=== PATIENT | male | born 1965 | race Asian ===

== ENCOUNTER 2024-05-25 06:13 | Inpatient (IN) ==
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
[2024-05-25] MEDS: AMOXICILLIN/CLAVULANATE 875 MG TAB PO ONE (10:45)
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
[2024-05-25] MEDS: SODIUM CHLORIDE 0.9% 1,000 ML IV ONE (11:20)
[2024-05-25 11:25] LABS: Basophils # (auto) 0.01 K/uL (0.00-0.20); Basophils % (auto) 0.1 %; Eosinophils # (auto) 0.02 K/uL (0.00-0.50); Eosinophils % (auto) 0.3 %; Hematocrit (blood only) 46.4 % (42.0-52.0); Hemoglobin 16.1 g/dl (14.0-18.0); Immature Granulocytes # (auto) 0.02 K/uL (0.01-0.20); Immature Granulocytes % (auto) 0.3 %; Lymphocytes % (auto) 13.4 %; Mean Corpuscular Hgb Conc 34.7 g/dL (32.0-36.0); Mean Corpuscular Volume 89.2 fL (80.0-100.0); Mean Platelet Volume 9.2 fL (9.4-12.4); Monocytes # (auto) 0.44 K/uL (0.11-0.59); Monocytes % (auto) 5.9 %; Neutrophils # (auto) 5.98 K/uL (1.40-6.50); Platelet Count 173 K/uL (130-400); RDW Coefficient of Variation 13.2 % (11.5-14.5); RDW Standard Deviation 43.2 fL (36.4-46.3); White Blood Count 7.47 K/ul (4.8-10.8)
[2024-05-25 11:40] LABS: Albumin Globulin Ratio 1.2 (0.9-2); Albumin Level 4.6 gm/dl (3.4-5.0); BUN Creatinine Ratio 8.7 (10-20); Bilirubin,Total 1.7 mg/dl (0.2-1.0); Calcium 9.3 mg/dl (8.6-10.3); Creatinine Clr Calc Pharmacy 90.4 ml/min; Globulin 3.7 gm/dl (2.5-4.0); Total Protein 8.3 gm/dl (6.0-8.3)
[2024-05-25] MEDS ORDERED: diphenhydrAMINE 50 MG/ML VIAL IV PRN ×2 (11:44→12:14)
--- NOTE | 2024-05-25 12:00 | Electrocardiogram Report ---
Test Reason : Blood Pressure : */* mmHG Vent. Rate : 79 BPM Atrial Rate : 79 BPM P-R Int : 152 ms QRS Dur : 90 ms QT Int : 382 ms P-R-T Axes : 47 -14 41 degrees QTcB Int : 438 ms Normal sinus rhythm Normal ECG No previous ECGs available Confirmed by Reza Marinelli ([id number]) on 05/25/2024 11:59:47 AM Referred By: NO PCP Confirmed By: Reza Marinelli
[2024-05-25] MEDS ORDERED: methylPREDNISolone 125 MG/2 ML VIAL IV PRN (12:13)
[2024-05-25] MEDS ORDERED: FAMOTIDINE 20MG IV PUSH 20 MG/5 ML SYR IV PRN (12:17)
--- NOTE | 2024-05-25 12:18 | XRay Report ---
XR chest 1V portable HISTORY: 58 years-old Male preop preoperative exam. No acute chest complaints COMPARISON: None TECHNIQUE: AP view the chest FINDINGS: Cardiomediastinal and hilar silhouettes are within normal limits. No pneumothorax, pleural effusion o r airspace consolidation. Spondylotic spurring of the spine. Bones appear grossly intact. IMPRESSION: No acute process. ACT 112: Negative or not required by law. The above report was generated using voice recognition software. It may contain grammatical, syntax o r spelling errors. Electronically signed by: Joaquim Bautista M.D. 05/25/2024 12:17 PM
[2024-05-25] MEDS: AMPICILLIN/SULBACTAM SOD 3,000 MG/100 ML BAG IV STA (12:38)
[2024-05-25] MEDS ORDERED: ACETAMINOPHEN 1,000 MG/100 ML VIAL IV PRN (14:14)
[2024-05-25] MEDS ORDERED: ONDANSETRON INJ 2 MG/ML 2 ML VIAL IV PRN (14:14)
[2024-05-25] MEDS ORDERED: MoRPHine SULFATE 2 MG/ML CARP IV PRN (14:14)
[2024-05-25] MEDS ORDERED: MoRPHine SULFATE 4 MG/ML 1 ML CARP\\VIAL IV PRN (14:14)
[2024-05-25] MEDS ORDERED: ALBUTEROL HFA 8 GM INHALER INH PRN (14:14)
[2024-05-25] MEDS ORDERED: methylPREDNISolone 125 MG in SYRINGE 0 ML IV PRN (14:22)
[2024-05-25 15:51] LABS: Partial Thromboplastin Time 28 Seconds (21-31)
[2024-05-25] MEDS: DIPHTHER/TETAN/PERTUS Vaccine (Tdap, Adol/Adult) 0.5mL IM ONE (17:22)
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
[2024-05-25] MEDS: AMPICILLIN/SULBACTAM SOD 3,000 MG/100 ML BAG IV SCH (20:56)
[2024-05-25] MEDS: METOPROLOL TARTRATE 25 MG TAB PO SCH (20:56)
[2024-05-26 06:30] LABS: Basophils # (auto) 0.02 K/uL (0.00-0.20); Basophils % (auto) 0.5 %; Eosinophils # (auto) 0.07 K/uL (0.00-0.50); Eosinophils % (auto) 1.7 %; Hematocrit (blood only) 44.1 % (42.0-52.0); Hemoglobin 14.9 g/dl (14.0-18.0); Immature Granulocytes # (auto) 0.01 K/uL (0.01-0.20); Immature Granulocytes % (auto) 0.2 %; Lymphocytes # (auto) 0.99 K/uL (1.20-3.40); Lymphocytes % (auto) 23.7 %; Mean Corpuscular Hemoglobin 30.5 pg (25.0-34.0); Mean Corpuscular Hgb Conc 33.8 g/dL (32.0-36.0); Mean Corpuscular Volume 90.2 fL (80.0-100.0); Mean Platelet Volume 9.4 fL (9.4-12.4); Monocytes # (auto) 0.54 K/uL (0.11-0.59); Monocytes % (auto) 12.9 %; Neutrophils # (auto) 2.55 K/uL (1.40-6.50); Platelet Count 177 K/uL (130-400); RDW Coefficient of Variation 13.3 % (11.5-14.5); RDW Standard Deviation 43.9 fL (36.4-46.3); Red Blood Count 4.89 M/uL (4.70-6.10); White Blood Count 4.18 K/ul (4.8-10.8)
[2024-05-26 06:54] LABS: BUN Creatinine Ratio 9.5 (10-20); Calcium 8.8 mg/dl (8.6-10.3); Creatinine Clr Calc Pharmacy 89.5 ml/min; Potassium 3.4 mmol/L (3.5-5.1)
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
[2024-05-26] MEDS: FLUTICASONE FUROATE 100MCG 14 PUFFS/INHALER INH SCH (07:52)
[2024-05-26] MEDS ORDERED: MIDAZOLAM HCL 1 MG/ML 2ML VIAL ONE (12:06)
[2024-05-26] MEDS ORDERED: ROCURONIUM BROMIDE 10 MG/ML 5 ML VIAL IV ONE (12:06)
[2024-05-26] MEDS ORDERED: fentaNYL citrate PF 100 MCG/2 ML VIAL ONE (12:06)
[2024-05-26] MEDS ORDERED: fentaNYL citrate PF 100 MCG/2 ML VIAL IV PRN (12:36)
[2024-05-26] MEDS ORDERED: ePHEDrine sulfate 50 MG/ML AMP IV PRN (12:36)
[2024-05-26] MEDS ORDERED: HYDROmorphone INJ 1 MG/ML SYRINGE IV PRN (12:36)
[2024-05-26] MEDS ORDERED: ONDANSETRON INJ 2 MG/ML 2 ML VIAL IV PRN (12:36)
[2024-05-26] MEDS ORDERED: ATROPINE SULFATE 0.1 MG/ML 10ML SYR IV PRN (12:36)
--- NOTE | 2024-05-26 12:36 | Anesthesiology Consultation ---
Date of Service May 26, 2024 Assessment & Plan ASA ASA2 Proposed Anesthesia Anesthesia Type: General Risk / Benefits Reviewed With: PT / POA / Parent / Guardian, Accepts Plan and Informed Consent Obtained History Surgery Operation Date: 05/26/24 12:00 Proposed Procedures p Closed Reduction Mandible - Heri Sheridan DMD Height/Weight Height: 5 ft 9 in Weight: 100.3 kg Allergies Allergy/AdvReac Type Severity Reaction Status Date / Time Penicillins Allergy Unknown Verified 05/25/24 11:37 Medications Home Medications Medication Instructions Recorded Confirmed Last Taken albuterol sulfate 90 mcg/actuation 2 puff inhalation QID PRN SOB 05/25/24 05/25/24 Unknown aerosol inhaler amlodipine 10 mg tablet 10 mg PO DAILY 05/25/24 05/25/24 Unknown ciclesonide 160 mcg/actuation 1 puff inhalation BID 05/25/24 05/25/24 Unknown aerosol inhaler (Alvesco) lisinopril 10 mg tablet 10 mg PO DAILY 05/25/24 05/25/24 Unknown metoprolol tartrate 25 mg tablet 25 mg PO BID 05/25/24 05/25/24 Unknown Active Medications Generic Name Dose Route Start Last Admin Trade Name Freq PRN Reason Stop Dose Admin Fluticasone Furoate 1 puffs 05/26/24 09:00 05/26/24 09:12 Fluticasone Furoate 100mcg 14 Puffs/Inhaler INH 06/25/24 08:59 Not Given DAILY YURI Ampicillin Sodium/Sulbactam Sodium 3,000 mg in 100 mls @ 200 mls/hr 05/25/24 19:30 05/26/24 08:37 Unasyn IV 06/04/24 19:29 Infused Q6H YURI Infusion Metoprolol Tartrate 25 mg 05/25/24 21:00 05/26/24 07:52 Metoprolol Tartrate 25 Mg Tab PO 06/24/24 20:59 25 mg BID YURI Administration NPO Date Last Intake of Fluids: 05/25/24 Time Last Intake of Fluids: 18:00 Date Last Intake of Solids: 05/25/24 Time Last Intake of Solids: 18:00 Past Medical History Medical History (Updated 05/25/24 @ 18:57 by Heri Sheridan DMD) HLD (hyperlipidemia) Psoriasis Allergic urticaria Exercise / Class Metabolic Activity II 4-5 Yardwork/Stairs/Walk up hill Past Anesthesia History No Hx of Anesthesia Complications and No Family Hx of Anesthesia Complications History of PONV No Hx of PONV and No Hx of Motion Sickness Social History Smoking Status: Never smoker Hx Alcohol Use: No Hx Substance Use: No Review of Systems denies fever/cough/ colds/ chest pain/ SOB/ PETER denies PETER Physical Exam Vital Signs Last Vital Signs Temp 36.7 C 05/26/24 07:29 Pulse 62 05/26/24 07:29 Resp 18 05/26/24 07:29 BP 129/85 05/26/24 07:29 Pulse Ox 98 05/26/24 07:29 O2 Del Method Room Air 05/26/24 07:29 ENMT Mouth: no TMJ abnormality and no dentition abnormality Thyromental Distance: > or= 3.5 Finger Breadths Mallampati Class: II Neck neck extension not limited Respiratory normal respiratory effort; no respiratory distress Auscultation: lungs clear to auscultation bilaterally Cardiovascular Rate/Rhythm: regular rate and regular rhythm Neurologic moves all extremities Psychiatric Orientation: alert and oriented x 3 Testing Laboratory Results 05/26/24 05:57 05/26/24 05:57 PT 11.0 Seconds (9.0-12.0) 05/25/24 15:11 INR 1.0 (0.9-1.1) 05/25/24 15:11 APTT 28 Seconds (21-31) 05/25/24 15:11
--- NOTE | 2024-05-26 12:36 | History & Physical Bridge Note ---
Date of Service May 26, 2024 History & Physical Bridge Note I have examined the patient, reviewed the History & Physical and in the interval since the performance of the History & Physical I have noted the following changes of clinical significance: no changes noted. OK for closed reduction of upper/lower segmental fractures to stabilize the fractured displaced anterior upper/lower dentoalveolar segments.
[2024-05-26] MEDS: CHLORHEXIDINE GLUCONATE 0.12% 480 ML MT ONE (13:23)
[2024-05-26] MEDS: BUPIVACAINE/EPINEPHRINE 0.5% 1:200,000 1.8 ML CARP ONE (13:23)
[2024-05-26] MEDS ORDERED: SUGAMMADEX SODIUM 200 MG/2 ML VIAL IV ONE (13:33)
--- NOTE | 2024-05-26 13:52 | Post Operative Brief Note ---
PG Immediate Post Op with CF Date of Surgery May 26, 2024 Pre & Post Diagnosis Operation Date: 05/26/24 12:00 Pre-Op Diagnosis: Segmental fracture of the anterior lower/upper jaw Lip lacerations and contusions Post-Op Diagnosis: Segmental fracture of the anterior lower/upper jaw Lip lacerations and contusions I identified the patient and participated in the time-out.: Yes Procedure Operation Date: 05/26/24 12:00 Actual Procedures p Repair of Segmental Fracture of Anterior Lower & Upper Jaw and Repair of Upper and Lower Lip Laceration - Heri Sheridan, CHARLES Surgeon Heri Sheridan, CHARLES High Lift Driver none Estimated Blood Loss 5 Findings Consistent with Post-Op Diagnosis displaced segmental alveolar fractures of the upper and lower anterior repair of upper/lower lip lacerations Specimens Specimen Description: No specimen Anesthesia Type General Complications Noted that teeth # 8 and 9 were fractured on the incisal edges from the recent trauma. I was not able to determine this on presentation due to dried blood on the lips and teeth Disposition Accompanied Patient To Recovery: Yes
[2024-05-26] MEDS ORDERED: PROPOFOL IV EMULSION 10 MG/ML 20 ML VIAL IV ONE (13:56)
--- NOTE | 2024-05-26 14:42 | Anesthesiology Progress Note ---
Date of Service May 26, 2024 Anesthesia Post Procedure Vital Signs Vital Signs: Temp Pulse Pulse Resp BP Pulse Ox O2 Del Method 05/26/24 14:30 36.6 C 70 18 156/103 H 92 Nasal Cannula 05/26/24 14:20 70 17 177/106 H 93 Room Air 05/26/24 14:10 66 17 171/108 H 97 Oxymask 05/26/24 14:00 68 17 167/104 H 96 Oxymask 05/26/24 13:50 36.5 C 70 14 168/98 H 96 Oxymask 05/26/24 07:29 36.7 C 62 18 129/85 98 Room Air 05/25/24 20:59 37.0 C 76 16 176/101 H 96 Room Air 05/25/24 20:28 Room Air O2 Flow Rate 05/26/24 14:30 2 05/26/24 14:20 05/26/24 14:10 4 05/26/24 14:00 6 05/26/24 13:50 6 05/26/24 07:29 05/25/24 20:59 05/25/24 20:28 Transfer of Care Handoff Completed per policy Notes Mental Status: alert / awake / arousable and participated in evaluation Patient Amnestic to Procedure: Yes Nausea / Vomiting: adequately controlled Pain: adequately controlled Airway Patency, RR, SpO2: stable & adequate BP & HR: stable & adequate Hydration State: stable & adequate Anesthetic Complications: no major complications apparent and Pt Satisfied with anesthetic care
--- NOTE | 2024-05-26 17:38 | Billing Data ---
Date of Service May 26, 2024 Coding Level of Care Code 76468 SUB INP/OBS CARE
[2024-05-27 07:07] VITALS: BP 160/96; PULSE 70; RESP 16; TEMP 98.1; O2SAT 97
[2024-05-27 07:07] LABS: Hematocrit (blood only) 42.7 % (42.0-52.0); Hemoglobin 14.7 g/dl (14.0-18.0); Immature Granulocytes # (auto) 0.02 K/uL (0.01-0.20); Immature Granulocytes % (auto) 0.3 %; Lymphocytes # (auto) 0.99 K/uL (1.20-3.40); Lymphocytes % (auto) 12.7 %; Mean Corpuscular Hemoglobin 30.8 pg (25.0-34.0); Mean Corpuscular Hgb Conc 34.4 g/dL (32.0-36.0); Mean Corpuscular Volume 89.3 fL (80.0-100.0); Mean Platelet Volume 9.1 fL (9.4-12.4); Monocytes # (auto) 0.64 K/uL (0.11-0.59); Monocytes % (auto) 8.2 %; Neutrophils # (auto) 6.16 K/uL (1.40-6.50); Neutrophils % (auto) 78.8 %; Platelet Count 174 K/uL (130-400); RDW Coefficient of Variation 13.1 % (11.5-14.5); RDW Standard Deviation 42.9 fL (36.4-46.3); Red Blood Count 4.78 M/uL (4.70-6.10); White Blood Count 7.81 K/ul (4.8-10.8)
[2024-05-27 07:32] LABS: BUN Creatinine Ratio 11.6 (10-20); Calcium 8.9 mg/dl (8.6-10.3); Creatinine Clr Calc Pharmacy 77.6 ml/min; Potassium 3.5 mmol/L (3.5-5.1)
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
--- NOTE | 2024-05-31 15:29 | Operative Report ---
PG Post Operative Report Pre & Post Diagnosis Operation Date: 05/26/24 12:00 Pre-Op Diagnosis: Segmental fracture of the anterior lower jaw ------CPT 14828 Repair of simple facial laceration of the lips--------CPT 78385 Post-Op Diagnosis: Segmental fracture of the anterior lower jaw Repair of simple facial laceration of the lips I identified the patient and participated in the time-out.: Yes Procedure Operation Date: 05/26/24 12:00 Actual Procedures p Repair of Segmental Fracture of Anterior Lower & Upper Jaw and Repair of Upper and Lower Lip Laceration - Heri Sheridan DMD Segmental fracture of the anterior lower jaw ------CPT 00614 x 2 upper and lower Repair of simple facial laceration of the lips--------CPT 68058 Surgeon Heri Sheridan DMD Senior Director [employer] none Estimated Blood Loss 5 Findings Consistent with Post-Op Diagnosis segmental alveolar fracture lower left side involving # 21-25 and upper area 7-9 Lip and chin lacerations Specimens none Anesthesia Type General Complications none Disposition Accompanied Patient To Recovery: Yes Indications segmental fractures of the anterior alveolar process upper and lower anterior with loose teeth lower anterior and upper 8 and 9 Description of Procedure Pre-op=segmental fractures, loose teeth , chin/lip/facial laceration Segmental fracture of the anterior lower/upper jaw ------CPT 61994 x 2 upper and lower Repair of simple facial laceration of the lips CPT 87716 S02.671 S02.42 S01.51 Once cleared for surgery general anesthesia was achieved, the eyes were protected by the anesthesia dept criteria.. A time out was take for patient ID, antibiotics, equipment and position verification once all agreed the procedure began. Local anesthesia was given into each area using Marcaine with a vasoconstrictor ( 1.8 ml per site). A throat pack was placed after the oral cavity was irrigated with saline. Once a surgical level of anesthesia was obtained and the local anesthesia was given time for the blocks the surgery was started. Placement of Arch wires Upper/Lower teeth to stabilize segmental alveolar fractures and loose teeth 8-9 and 22-24 CPT 59958 x 2 upper and lower S02.671 S02.42 Local anesthesia in the form of Marcaine with a vasoconstrictor was used to obtain local effect,approximately 4 carpules of the local anesthesia was injected. The fractured was reduced and the occlusion was checked. Once the teeth and segmental fractures were reduced the teeth were very well aligned. The arch wires were placed on the lower and upper teeth with 25 gauge stainless steel wires to stabilize the loose teeth and segmental bone. Teeth 8-9 and 22-24 were now in anatomic form and were very stable. the occlusion was reproducible and stable. It was noted that there was good stability of the fracture. Given the minimal displacement and stability of the fracture a closed reduction was necessary for adequate stability. Simple repair of lacerations . Repair of simple facial laceration of the lips CPT 66655 S01.51 I now closed the chin and lip laceration with a 5-0 Vicryl, these were simple lacerations and the total length of all oral, lip and facial lacerations was 2 cm. The arch wires will be in place for at least 5-7 weeks to maintain the ideal position of the occlusion, fractured segmental bone and loose teeth to allow healing. Soft diet and good oral care is needed. We will call the facility to arrange for out patient follow up. Rx Clindamycin x 7 days. I inspected the sites to insure all bleeding was controlled and fractures well reduced and occlusion was stable All instrument and sponge count was correct. The patient was allowed to awake from the anesthesia. Once full awake the anesthesia tube was removed and the patient was taken to the recovery room with all vital sign stable. The patient tolerated the surgery very well. I will follow the patient in my office, Rx and instructions will be given upon discharge. I attest to the content of the Intraoperative Record and any orders documented therein. Any exceptions are noted below.
== END 2024-05-27 15:41 | DRG 144 ==
LOC: ED 06:13 → SUATTDRO 12:05 → 3E 12:05